=== PATIENT | male | born 2005 | race Caucasian/White ===

== ENCOUNTER 2023-06-12 19:04 | Emergency (ER) | payer OTHER ==
[2023-06-12] MEDS ORDERED: LORazepam 1 MG TABLET PO STA (19:20)
--- NOTE | 2023-06-12 19:21 | ED Physician Documentation ---
PD HPI DYSPNEA - Stated complaint Stated Complaint: SOA/HIGH HR - Chief complaint Chief Complaint: Cardiac - History obtained from History obtained from: Patient - Additional information Additional information: 17-year-old with history of anxiety and lactose intolerance, otherwise healthy. For the last couple weeks has had shortness of breath and feeling like his heart rate goes high than low. There is no associated chest pain, pedal edema, recent travel, cough. No other health history. PD PAST MEDICAL HISTORY - Past Medical History Cardiovascular: None Respiratory: None Endocrine/Autoimmune: None Psych: None Musculoskeletal: None - Present Medications Home Medications: Ambulatory Orders Medication Instructions Recorded Confirmed No Known Home Medications 06/12/23 06/12/23 - Allergies Allergies/Adverse Reactions: Allergies Allergy/AdvReac Type Severity Reaction Status Date / Time No Known Drug Allergies Allergy Verified 06/12/23 19:07 PD ED PE NORMAL - Vitals Vital signs reviewed: Yes - General General: Alert and oriented X 3, Other (He appears slightly anxious) - Cardiac Cardiac: RRR, No murmur - Respiratory Respiratory: No respiratory distress, Clear bilaterally - Abdomen Abdomen: Non tender - Extremities Extremities: No edema, No calf tenderness / cord - Neuro Neuro: Alert and oriented X 3, Normal speech Results - Vitals Vitals: Vital Signs - 24 hr 06/12/23 06/12/23 19:07 19:10 Temperature 36.5 C Heart Rate 96 Respiratory 16 Rate Blood Pressure 150/86 H Blood Pressure 132/76 H [Left] O2 Saturation 100 Oxygen O2 Source Room air - EKG (time done) 8 EKG releavant findings:: EKG personally interpreted by author of this note. Relevant findings are: Rate: Rate (enter#) (85) Rhythm: NSR [place]: Normal Intervals: Normal [place] QRS: Normal Ischemia: Normal ST segments - Labs Labs: Laboratory Tests 06/12/23 06/12/23 19:33 19:33 WBC 6.4 RBC 5.30 Hgb 15.4 Hct 46.2 MCV 87.2 MCH 29.1 MCHC 33.3 RDW 12.4 Plt Count 201 MPV 10.0 Neut # (Auto) 3.1 Lymph # (Auto) 1.8 [place] # (Auto) 0.5 Eos # (Auto) 0.8 H Baso # (Auto) 0.1 Absolute Nucleated RBC 0.00 Nucleated RBC % 0.0 Sodium 138 Potassium 3.4 L Chloride 103 Carbon Dioxide 28 Anion Gap 7.0 BUN 16 Creatinine 1.1 Estimated GFR (MDRD) 86 L Glucose 120 H Calcium 9.9 PD Medical Decision Making - ED course ED course: 17-year-old with palpitations and shortness of breath of several weeks duration associate with anxiety. Symptoms resolved here with administration of oral lorazepam. CBC, BMP unremarkable. Heart score 0, PERC negative. The patient and family were counseled as to the diagnosis and need for follow- up. I counseled the patient with regard to signs and symptoms that would necessitate an urgent reevaluation in the emergency department. They understand they are welcome to return at any time if worse or if not improving as expected. This document was made in part using voice recognition software. While efforts are made to proofread this documents, sound alike and grammatical errors may occur. Departure - Departure Disposition: 01 Home, Self Care Clinical Impression: Heart palpitations Dyspnea Qualifiers: Dyspnea type: shortness of breath Qualified Code(s): R06.02 - Shortness of breath Condition: Good Record reviewed to determine appropriate education?: Yes Instructions: ED Dyspnea Shortness of Breath Comments: Results looking good here, but you should follow-up with your primary care physician, consider echocardiography or event monitor if symptoms are persistent. Return for new or worsening symptoms. Forms: PCP List
[2023-06-12 19:39] LABS: BASOPHILS # (AUTO) 0.1 10^3/uL (0.0-0.1); BASOPHILS % (AUTO) 0.9 %; EOSINOPHILS # (AUTO) 0.8 10^3/uL (0.0-0.7); EOSINOPHILS % (AUTO) 13.1 %; HCT - HEMATOCRIT 46.2 % (42.0-52.0); HGB - HEMOGLOBIN 15.4 g/dL (14.0-18.0); LYMPHOCYTES # (AUTO) 1.8 10^3/uL (1.5-3.5); LYMPHOCYTES % (AUTO) 28.5 %; MEAN CORPUSCULAR HEMOGLOBIN 29.1 pg (27.0-31.0); MEAN CORPUSCULAR HGB CONC 33.3 g/dL (32.0-36.0); MEAN CORPUSCULAR VOLUME 87.2 fL (80.0-94.0); MONOCYTES # (AUTO) 0.5 10^3/uL (0.0-1.0); NEUTROPHILS # (AUTO) 3.1 10^3/uL (1.5-6.6); NEUTROPHILS % (AUTO) 49.3 %; PLT - PLATELET COUNT 201 10^3/uL (130-450); RED CELL DISTRIBUTION WIDTH 12.4 % (12.0-15.0); WHITE BLOOD COUNT 6.4 x10^3/uL (4.8-10.8)
[2023-06-12 19:59] LABS: CALCIUM 9.9 mg/dL (8.5-10.3); CREATININE 1.1 mg/dL (0.6-1.3); POTASSIUM 3.4 mmol/L (3.5-4.5)
--- NOTE | 2023-06-12 20:00 | XRAY Report ---
PROCEDURE: Chest 1 View X-Ray INDICATIONS: DYSPNEA TECHNIQUE: One view of the chest was acquired. COMPARISON: None. FINDINGS: Surgical changes and devices: None. Lungs and pleura: No pleural effusions or pneumothorax. Lungs are clear. Mediastinum: Mediastinal contours appear normal. Heart size is normal. Bones and chest wall: No suspicious bony lesions. Overlying soft tissues appear unremarkable. IMPRESSION: No acute cardiopulmonary process. Reviewed by: Nnamdi Blood MD on 06/12/2023 7:59 PM PDT Approved by: Nnamdi Blood MD on 06/12/2023 7:59 PM PDT Station ID: [id number]
[2023-06-12 20:34] VITALS: BP 133/83
== END 2023-06-12 20:32 | disposition home or self-care (01) ==
LOC: ED 19:04
DX: R00.2 Palpitations (principal); R06.02 Shortness of breath
CPT/HCPCS: 36415; 71045; 80048; 85025; 93005; 99284; J8499